=== PATIENT | female | born 1985 | race Caucasian/White ===

== ENCOUNTER → 2019-02-19 13:45 | Outpatient (BNVA) | payer OTHER, SELFPAY | PROVIDERS: Family Provider Family Medicine; PCP Family Medicine; Visit Provider Psychiatry & Neurology Psychiatry | DX: F43.12 Post-traumatic stress disorder, chronic (principal) | CPT/HCPCS: 99204 ==

== ENCOUNTER → 2019-04-20 14:59 | Outpatient (BNVA) | payer OTHER, SELFPAY | PROVIDERS: Family Provider Family Medicine; PCP Family Medicine; Referring Provider Family Medicine; Visit Provider Specialist | DX: M25.562 Pain in left knee (principal); G89.29 Other chronic pain | CPT/HCPCS: 73560; 73565 ==

== ENCOUNTER → 2019-08-10 16:04 | Outpatient (BNVA) | payer OTHER, SELFPAY | PROVIDERS: Family Provider Family Medicine; PCP Family Medicine; Visit Provider Nurse Practitioner Family | DX: M25.511 Pain in right shoulder (principal) | CPT/HCPCS: 73030 ==

== ENCOUNTER 2019-08-26 07:07 | Outpatient (CLI) | payer OTHER, SELFPAY ==
--- NOTE | 2019-08-26 07:15 | MR_ITS ---
WS: [id number] MRI RIGHT SHOULDER NONCONTRAST TECHNIQUE: Sagittal T2, coronal T1, T2 and proton density imaging. Axial gradient PDE imaging. CLINICAL INFORMATION: M25.511 Pain in right shoulder COMPARISON: None. FINDINGS: Prior postoperative changes right rotator cuff repair. Rotator cuff anchors results in Susceptibility artifact overlying the rotator cuff. Normal AC joint. Normal glenohumeral joint. No significant subacromial or subdeltoid fluid. Minimal u ndersurface acromial spurring. Mild downsloping of the acromion. Normal supraspinatus. Normal infrasp inatus. No evidence of recurrent high-grade tear. Normal teres minor and subscapularis. Rotator cuff appears intact. Normal biceps tendon in the bicipital groove. Normal biceps anchor. Glenoid labrum appears grossly in tact. No geoffrey labral tears. MR/MR shoulder RT wo con* [id number] IMPRESSION: 1. Evidence of prior rotator cuff repair with susceptibility artifact overlyin g the right shoulder. 2. Rotator cuff appears intact. No recurrent rotator cuff tear. 3. Normal biceps tendon in the bicipital groove. Normal biceps labral anchor. 4. Glenoid labrum appears grossly normal. 5. Normal bone marrow signal.
== END 2019-08-26 07:08 | disposition home or self-care (01) ==
LOC: RADSHAW 07:12
PROVIDERS: PCP Family Medicine; Visit Provider Nurse Practitioner Family
DX: M25.511 Pain in right shoulder (principal)
CPT/HCPCS: 73221

== ENCOUNTER → 2019-09-14 10:45 | Outpatient (BNVA) | payer OTHER, SELFPAY | PROVIDERS: PCP Family Medicine; Referring Provider Specialist; Visit Provider Anesthesiology Pain Medicine | DX: G89.29 Other chronic pain (principal); M79.18 Myalgia, other site; M25.511 Pain in right shoulder; M75.91 Shoulder lesion, unspecified, right shoulder; M67.911 Unspecified disorder of synovium and tendon, right shoulder; M54.42 Lumbago with sciatica, left side; M25.562 Pain in left knee; F17.210 Nicotine dependence, cigarettes, uncomplicated; Z79.891 Long term (current) use of opiate analgesic | CPT/HCPCS: 20553; 99203; 99204; J1030; J3490 ==

== ENCOUNTER 2019-10-29 16:08 | Emergency (ER) | payer OTHER, SELFPAY ==
[2019-10-29 16:47] VITALS: BP 133/93; PULSE 95; RESP 18; O2SAT 99; BMI 35.2
--- NOTE | 2019-10-29 17:09 | CTR_ITS ---
PROCEDURE INFORMATION: Exam: CT Abdomen And Pelvis With Contrast Exam date and time: 10/29/2019 5:36 PM Age: 34 years old Clinical indication: Bloating and nausea and vomiting; Abdominal pain; Other: Umbilical and RT lower; Prior surgery; Surgery type: Hyst TECHNIQUE: Imaging protocol: Computed tomography of the abdomen and pelvis with intravenous contrast. Radiation optimization: All CT scans at this facility use at least one of these dose optimization techniques: automated exposure control; mA and/or kV adjustment per patient size (includes targeted exams where dose is matched to clinical indication); or iterative reconstruction. Contrast material: OMNI 300; Contrast volume: 95 ml; Contrast route: INTRAVENOUS (IV); COMPARISON: No relevant prior studies available. RADIATION DOSE METRICS: Total DLP (mGy-cm): 1360.61 FINDINGS: Lungs: Limited assessment lung bases without visible evidence of active cardiopulmonary process. Liver: Hepatomegaly. Liver otherwise unremarkable without visible hepatic mass or cystic structure. Gallbladder and bile ducts: Normal. No calcified stones. No ductal dilation. Pancreas: Normal. No ductal dilation. Spleen: Normal. No splenomegaly. Adrenals: Normal. No mass. Kidneys and ureters: Normal. No hydronephrosis. Stomach and bowel: Examination reveals acute uncomplicated diverticulitis of the mid transverse colon. Associated surrounding pericolonic fat inflammatory phlegmonous response. No visible extraluminal gas or abscess. Nonobstructive bowel pattern. Mild reactive ileus of adjacent small bowel loops. Appendix: The appendix is visualized and is noninflamed. Intraperitoneal space: No visible intraperitoneal ascites. Vasculature: The abdominal aorta is nonaneurysmal. Minimal arterial sclerotic disease. Lymph nodes: Unremarkable. No enlarged lymph nodes. Bladder: Unremarkable as visualized. Reproductive: Status post hysterectomy. Bones/joints: No visible active osseous pathology. Soft tissues: Unremarkable. Other findings: Obesity. CT/CT abdomen pelvis w con* [id number] IMPRESSION: 1. Examination reveals acute uncomplicated diverticulitis of the mid transverse colon. Associated surrounding pericolonic fat inflammatory phlegmonous response. No visible extraluminal gas or abscess. 2. Mild reactive ileus of adjacent small bowel loops. Radiation Dose CTDIVOL = (mGy): DLP = 1360.61 (mGy-cm)
[2019-10-29 17:28] VITALS: RESP 20
[2019-10-29] MEDS: morphine 4 mg/mL SDV 1 mL IVP (17:28)
[2019-10-29] MEDS: ondansetron 2 mg/ML SDV 2 mL 4 MG IVP (17:28)
--- NOTE | 2019-10-29 17:33 | W.ED.ABDPA2 ---
Documented by User: Ashley Chandler MD 10/30/19 06:46 HPI - Abdominal Pain General: Chief Complaint: Abdominal Pain Stated Complaint: RLQ PAIN,COVID EXPOSURE Time Seen by Provider: 10/29/19 17:00 History of Present Illness: HPI narrative: This patient is a 34-year-old female who presents today with severe lower abdominal pain that started last night. She had vomiting and diarrhea yesterday but has not had any today. She was able to eat some Ramen noodles this morning but it did make her pain worse. She has not eaten anything since then. She went to the [facility] and [place] and was sent to the ER. She also received notification from the health department that she had a positive COVID exposure but she is not having any symptoms consistent with COVID at this time. She has had a complete hysterectomy including her ovaries at the age of 21. This was done for severe endometriosis. She has not had any other abdominal surgeries since then. MD elicited complaint: abdominal pain Pertinent past history: none Onset (ago): day(s) (Started last night) Pain Consistency: constant and colicky Location: RLQ and LLQ Severity: severe Quality: cramping and sharp Radiation: none Exacerbating factors: movement Relieving factors: nothing Associated Symptoms: Reports bloating, GI cramping, diarrhea, nausea and vomiting; Denies chills and fever(s) Review of Systems General: Reports: 10 or more systems reviewed and unremarkable except in HPI and below Const: Denies: fever(s), chills, fatigue or malaise Eyes: Denies: change in vision ENMT: Denies: odynophagia Card: Denies: chest pain or swelling of feet/ankles Resp: Denies: dyspnea, productive cough or non-productive cough GI: Reports: abdominal pain, nausea, vomiting, diarrhea, bloating and GI cramping : Denies: flank pain or difficulty voiding Musc: Denies: neck pain or back pain Skin/Breast: Denies: rash Neuro: Denies: headache(s), numbness in extremities or weakness in extremities Antonio/Lymph: Denies: easy bruising or easy bleeding PFSH ED PFSH: Medical History (Updated 10/29/19 @ 19:08 by Ernst Sr MD) Chronic pain of left knee Generalized anxiety disorder Surgical History (Updated 10/29/19 @ 17:36 by Ashley Chandler MD) H/O arthroscopic knee surgery H/O shoulder surgery H/O total hysterectomy with bilateral salpingo-oophorectomy (BSO) Family History Family/Other Cancer BREAST CANCER-AUNT Mother Diabetes Hypertension Grandmother Hypertension Social History Smoking and tobacco status: current every day smoker cigarettes Years cigarettes smoked: 20 Quit status (tobacco): has tried quititng Number of times tried to quit tobacco: 4 Second hand smoke exposure: No Smoking risk assessment/counseling performed?: No Female Reproductive History: Spontaneous abortions: No Physical Exam Const: COMMON NORMALS: patient oriented x3, no limitations and alert GENERAL APPEARANCE: cooperative HENMT: HEAD & SCALP: normal to inspection FACE & SINUS: normal facial exam Eye: GENERAL EYE: appearance normal, both eyes and all related structures Neck/C-Spine: COMMON NORMALS: supple, no meningeal signs and no JVD Chest: COMMONS NORMALS: normal inspection of the chest Resp: COMMON NORMALS: normal respiratory effort, No use of accessory muscles and clear to auscultation bilaterally AUSCULTATION: clear to auscultation bilaterally Cardio: COMMON NORMALS: no JVD, regular rate, regular rhythm and No murmurs present (Cardio) RATE: regular rate RHYTHM: regular rhythm GI: INSPECTION: Yes normal to inspection and Yes abdominal distension AUSCULTATION: Yes Hypoactive bowel sounds present PALPATION: Yes Tenderness to palpation present (GI) (Severe, bilateral lower quadrants.) PERCUSSION: tympanic to percussion Back/Pelvis: COMMON NORMALS: thoracic and lumbar spine normal to inspection Extremity: COMMON NORMALS: normal to inspection Neuro: COMMON NORMALS: patient oriented x3, moves all extremities, no focal motor deficits and no sensory deficits noted SENSORIUM/ORIENTATION: Yes alert MENINGEAL SIGNS: Yes no meningeal signs Psych: COMMON NORMALS: mental status grossly normal, cooperative and normal affect Skin: COMMON NORMALS: no rashes or lesions noted and turgor normal GENERAL SKIN EXAM: no rashes or lesions noted and turgor normal Course ED course: This patient presents with severe abdominal pain across the lower abdomen. She was unable to find a comfortable position and was given pain medication in the ER. Labs and CT are ordered. Care turned over to Dr. Sr at shift change. Vital Signs: Vital signs: Vital Signs Pulse Rate 87 10/29/19 19:56 Respiratory Rate 16 10/29/19 19:56 Blood Pressure 132/76 10/29/19 19:56 Pulse Oximetry 98 10/29/19 19:56 MDM - Abdominal Pain Lab Data: Labs: Lab Results 10/29/19 10/29/19 10/29/19 Range/Units 17:20 17:20 17:20 WBC 13.5 H (4.0-10.0) 10^3/ uL RBC 4.14 (4.1-5.3) 10^6/u L Hgb 13.3 (11.5-15.3) g/dL Hct 40.4 (37.0-47.0) % MCV 97.6 (81-99) fL MCH 32.1 (28.0-34.0) pg MCHC 32.9 (30.0-36.0) g/dL RDW 12.5 (12.1-15.1) % Plt Count 324 (130-400) 10^3/c mm MPV 10.6 H (7.4-10.4) fL Neut % (Auto) 71.2 % Lymph % (Auto) 20.0 % [place] % (Auto) 7.5 % Eos % (Auto) 0.5 % Baso % (Auto) 0.5 % Neut # (Auto) 9.58 H (1.8-7.7) 10^3/u L Lymph # (Auto) 2.7 (0.8-4.8) 10^3/u L [place] # (Auto) 1.0 H (0.2-0.9) 10^3/u L Eos # (Auto) 0.1 (0.0-0.8) 10^3/u L Baso # (Auto) 0.1 (0.0-0.1) 10^3/u L Nucleated RBC % (a uto) 0 % Nucleated RBCs # 0.0 /100WBC Sodium 138 (136-145) mmol/L Potassium 4.2 (3.5-5.1) mmol/L Chloride 103 (98-107) mmol/L Carbon Dioxide 23 (22-29) mmol/L Anion Gap 16.2 (5-19) BUN 6 (6-20) mg/dL Creatinine 0.6 (0.5-0.9) mg/dL GFR Calculation 113.8 (90-130) mL/min Glucose 85 (65-115) mg/dL Calculated Osmolal ity 283 L (285-295) mOsm/k g Lactic Acid 0.9 (0.5-2.2) mmol/L Calcium 9.6 (8.5-10.5) mg/dL Total Bilirubin 0.2 (0.15-1.2) mg/dL AST 18 (0-32) U/L ALT 25 (0-33) U/L Alkaline Phosphata se 138 H (35-105) IU/L Total Protein 8.4 (6.6-8.7) g/dL Albumin 4.7 (3.5-5.2) g/dL Globulin 3.7 (1.3-4.6) g/dL Lipase 18 (13-60) U/L Urine Color (Yellow) Urine Appearance (CLEAR) Urine pH (5-7) Ur Specific Gravit y (1.005-1.030) Urine Protein (Negative) Urine Glucose (UA) (Normal) Urine Ketones (Negative) Urine Blood (Negative) Urine Nitrate (Negative) Urine Bilirubin (Negative) Urine Urobilinogen (Negative) mg/dL Ur Leukocyte Whitney ase (Negative) 10/29/19 Range/Units 17:29 WBC (4.0-10.0) 10^3/ uL RBC (4.1-5.3) 10^6/u L Hgb (11.5-15.3) g/dL Hct (37.0-47.0) % MCV (81-99) fL MCH (28.0-34.0) pg MCHC (30.0-36.0) g/dL RDW (12.1-15.1) % Plt Count (130-400) 10^3/c mm MPV (7.4-10.4) fL Neut % (Auto) % Lymph % (Auto) % [place] % (Auto) % Eos % (Auto) % Baso % (Auto) % Neut # (Auto) (1.8-7.7) 10^3/u L Lymph # (Auto) (0.8-4.8) 10^3/u L [place] # (Auto) (0.2-0.9) 10^3/u L Eos # (Auto) (0.0-0.8) 10^3/u L Baso # (Auto) (0.0-0.1) 10^3/u L Nucleated RBC % (a uto) % Nucleated RBCs # /100WBC Sodium (136-145) mmol/L Potassium (3.5-5.1) mmol/L Chloride (98-107) mmol/L Carbon Dioxide (22-29) mmol/L Anion Gap (5-19) BUN (6-20) mg/dL Creatinine (0.5-0.9) mg/dL GFR Calculation (90-130) mL/min Glucose (65-115) mg/dL Calculated Osmolal ity (285-295) mOsm/k g Lactic Acid (0.5-2.2) mmol/L Calcium (8.5-10.5) mg/dL Total Bilirubin (0.15-1.2) mg/dL AST (0-32) U/L ALT (0-33) U/L Alkaline Phosphata se (35-105) IU/L Total Protein (6.6-8.7) g/dL Albumin (3.5-5.2) g/dL Globulin (1.3-4.6) g/dL Lipase (13-60) U/L Urine Color Straw (Yellow) Urine Appearance Clear (CLEAR) Urine pH 7 (5-7) Ur Specific Gravit y 1.005 (1.005-1.030) Urine Protein Neg (Negative) Urine Glucose (UA) Norm (Normal) Urine Ketones Negative (Negative) Urine Blood Neg (Negative) Urine Nitrate Negative (Negative) Urine Bilirubin Neg (Negative) Urine Urobilinogen Neg (Negative) mg/dL Ur Leukocyte Whitney ase Negative (Negative) Discharge Plan Discharge Patient Disposition: Home Clinical Impression: Diverticulitis Condition: Stable Prescriptions: New Arboles 5-325 mg tablet 1 tab PO Q6H PRN (Reason: pain) Qty: 14 RF: 0 Zofran 4 mg tablet 4 mg PO QID PRN (Reason: nausea and vomiting) Qty: 14 RF: 0 Augmentin 875-125 mg tablet 1 tab PO BID Qty: 10 RF: 0 No Action buspirone 5 mg tablet 5 mg PO BID PRN (Reason: Anxiety) RF: 0 venlafaxine 150 mg capsule,extended release 24hr 150 mg PO DAILY RF: 0 Discharge Orders: Discharge Order (Routine); Ordered 10/29/19 Ordered By: Ernst Sr Referrals: Lenore Soares MD [Primary Care Provider] - 1-3 days Discharge Diet: Advance as tolerated Discharge Activity: Resume usual activity Patient Instructions: Diverticulitis (ED) Discharge Date/Time: 10/29/19 19:57 Coding Level of Care Code ED Apartment Groundskeeper for Chg Fwd Exam Comprehensive Documented by User: Ernst Sr MD 10/29/19 19:15 HPI - Abdominal Pain General: Chief Complaint: Abdominal Pain Stated Complaint: RLQ PAIN,COVID EXPOSURE Time Seen by Provider: 10/29/19 17:00 [facility] ED PFSH: Medical History (Updated 10/29/19 @ 19:08 by Ernst Sr MD) Chronic pain of left knee Generalized anxiety disorder Surgical History (Updated 10/29/19 @ 17:36 by Ashley Chandler MD) H/O arthroscopic knee surgery H/O shoulder surgery H/O total hysterectomy with bilateral salpingo-oophorectomy (BSO) Family History Family/Other Cancer BREAST CANCER-AUNT Mother Diabetes Hypertension Grandmother Hypertension Social History Smoking and tobacco status: current every day smoker cigarettes Years cigarettes smoked: 20 Quit status (tobacco): has tried quititng Number of times tried to quit tobacco: 4 Second hand smoke exposure: No Smoking risk assessment/counseling performed?: No Course Vital Signs: Vital signs: Vital Signs Pulse Rate 87 10/29/19 19:56 Respiratory Rate 16 10/29/19 19:56 Blood Pressure 132/76 10/29/19 19:56 Pulse Oximetry 98 10/29/19 19:56 MDM - Abdominal Pain MDM Narrative: Medical decision making narrative: Patient presents here with abdominal pain is found to have diverticulitis. Patient's abdominal pain is improved here and her exam at discharge is benign. She is stable for discharge I informed her to follow-up with her PCP in 3 to 5 days return to the ER if her pain worsens she has vomiting. We will place her on Augmentin along with pain meds. Lab Data: Labs: Lab Results 10/29/19 10/29/19 10/29/19 Range/Units 17:20 17: 17:20 WBC 13.5 H (4.0-10.0) 10^3/ uL RBC 4.14 (4.1-5.3) 10^6/u L Hgb 13.3 (11.5-15.3) g/dL Hct 40.4 (37.0-47.0) % MCV 97.6 (81-99) fL MCH 32.1 (28.0-34.0) pg MCHC 32.9 (30.0-36.0) g/dL RDW 12.5 (12.1-15.1) % Plt Count 324 (130-400) 10^3/c mm MPV 10.6 H (7.4-10.4) fL Neut % (Auto) 71.2 % Lymph % (Auto) 20.0 % [place] % (Auto) 7.5 % Eos % (Auto) 0.5 % Baso % (Auto) 0.5 % Neut # (Auto) 9.58 H (1.8-7.7) 10^3/u L Lymph # (Auto) 2.7 (0.8-4.8) 10^3/u L [place] # (Auto) 1.0 H (0.2-0.9) 10^3/u L Eos # (Auto) 0.1 (0.0-0.8) 10^3/u L Baso # (Auto) 0.1 (0.0-0.1) 10^3/u L Nucleated RBC % (a uto) 0 % Nucleated RBCs # 0.0 /100WBC Sodium 138 (136-145) mmol/L Potassium 4.2 (3.5-5.1) mmol/L Chloride 103 (98-107) mmol/L Carbon Dioxide 23 (22-29) mmol/L Anion Gap 16.2 (5-19) BUN 6 (6-20) mg/dL Creatinine 0.6 (0.5-0.9) mg/dL GFR Calculation 113.8 (90-130) mL/min Glucose 85 (65-115) mg/dL Calculated Osmolal ity 283 L (285-295) mOsm/k g Lactic Acid 0.9 (0.5-2.2) mmol/L Calcium 9.6 (8.5-10.5) mg/dL Total Bilirubin 0.2 (0.15-1.2) mg/dL AST 18 (0-32) U/L ALT 25 (0-33) U/L Alkaline Phosphata se 138 H (35-105) IU/L Total Protein 8.4 (6.6-8.7) g/dL Albumin 4.7 (3.5-5.2) g/dL Globulin 3.7 (1.3-4.6) g/dL Lipase 18 (13-60) U/L Urine Color (Yellow) Urine Appearance (CLEAR) Urine pH (5-7) Ur Specific Gravit y (1.005-1.030) Urine Protein (Negative) Urine Glucose (UA) (Normal) Urine Ketones (Negative) Urine Blood (Negative) Urine Nitrate (Negative) Urine Bilirubin (Negative) Urine Urobilinogen (Negative) mg/dL Ur Leukocyte Whitney ase (Negative) 10/29/19 Range/Units 17:29 WBC (4.0-10.0) 10^3/ uL RBC (4.1-5.3) 10^6/u L Hgb (11.5-15.3) g/dL Hct (37.0-47.0) % MCV (81-99) fL MCH (28.0-34.0) pg MCHC (30.0-36.0) g/dL RDW (12.1-15.1) % Plt Count (130-400) 10^3/c mm MPV (7.4-10.4) fL Neut % (Auto) % Lymph % (Auto) % [place] % (Auto) % Eos % (Auto) % Baso % (Auto) % Neut # (Auto) (1.8-7.7) 10^3/u L Lymph # (Auto) (0.8-4.8) 10^3/u L [place] # (Auto) (0.2-0.9) 10^3/u L Eos # (Auto) (0.0-0.8) 10^3/u L Baso # (Auto) (0.0-0.1) 10^3/u L Nucleated RBC % (a uto) % Nucleated RBCs # /100WBC Sodium (136-145) mmol/L Potassium (3.5-5.1) mmol/L Chloride (98-107) mmol/L Carbon Dioxide (22-29) mmol/L Anion Gap (5-19) BUN (6-20) mg/dL Creatinine (0.5-0.9) mg/dL GFR Calculation (90-130) mL/min Glucose (65-115) mg/dL Calculated Osmolal ity (285-295) mOsm/k g Lactic Acid (0.5-2.2) mmol/L Calcium (8.5-10.5) mg/dL Total Bilirubin (0.15-1.2) mg/dL AST (0-32) U/L ALT (0-33) U/L Alkaline Phosphata se (35-105) IU/L Total Protein (6.6-8.7) g/dL Albumin (3.5-5.2) g/dL Globulin (1.3-4.6) g/dL Lipase (13-60) U/L Urine Color Straw (Yellow) Urine Appearance Clear (CLEAR) Urine pH 7 (5-7) Ur Specific Gravit y 1.005 (1.005-1.030) Urine Protein Neg (Negative) Urine Glucose (UA) Norm (Normal) Urine Ketones Negative (Negative) Urine Blood Neg (Negative) Urine Nitrate Negative (Negative) Urine Bilirubin Neg (Negative) Urine Urobilinogen Neg (Negative) mg/dL Ur Leukocyte Whitney ase Negative (Negative) Imaging Data ^: CT Abd/Pel: Radiologist's impression: [address] [address] [address] Scan Report Signed with Addenda Patient: Daniella Quintanilla [id number] [facility] 1985 [id number] Age/Sex: 34 / F ADM Date: 10/29/19 Loc: ER Room/Bed: Attending Dr: Ordering Provider/Ordering MD: Ashley Chandler MD Date of Service: 10/29/19 Procedure(s): CT abdomen pelvis w con* [id number] Accession Number(s): [id number] Report Number: [id number]/CT abdomen pelvis w con* [id number] THIS REPORT CONTAINS FINDINGS THAT MAY BE CRITICAL TO PATIENT CARE. The findings were verbally communicated via telephone conference with Ashley Chandler at 7:03 PM CDT on 10/29/2019. The findings were acknowledged and understood. Radiation Dose CTDIVOL = (mGy): DLP = 1360.61 (mGy-cm) Addendum Dictated By: Osmar Vogt Addendum Signed By: Osmar Vogt Signed Date/Time: 10/29/19 190 5 Addendum Cosigned By: PROCEDURE INFORMATION: Exam: CT Abdomen And Pelvis With Contrast Exam date and time: 10/29/2019 5:36 PM Age: 34 years old Clinical indication: Bloating and nausea and vomiting; Abdominal pain; Other: Umbilical and RT lower; Prior surgery; Surgery type: Hyst TECHNIQUE: Imaging protocol: Computed tomography of the abdomen and pelvis with intravenous contrast. Radiation optimization: All CT scans at this facility use at least one of these dose optimization techniques: automated exposure control; mA and/or kV adjustment per patient size (includes targeted exams where dose is matched to clinical indication); or iterative reconstruction. Contrast material: OMNI 300; Contrast volume: 95 ml; Contrast route: INTRAVENOUS (IV); COMPARISON: No relevant prior studies available. RADIATION DOSE METRICS: Total DLP (mGy-cm): 1360.61 FINDINGS: Lungs: Limited assessment lung bases without visible evidence of active cardiopulmonary process. Liver: Hepatomegaly. Liver otherwise unremarkable without visible hepatic mass or cystic structure. Gallbladder and bile ducts: Normal. No calcified stones. No ductal dilation. Pancreas: Normal. No ductal dilation. Spleen: Normal. No splenomegaly. Adrenals: Normal. No mass. Kidneys and ureters: Normal. No hydronephrosis. Stomach and bowel: Examination reveals acute uncomplicated diverticulitis of the mid transverse colon. Associated surrounding pericolonic fat inflammatory phlegmonous response. No visible extraluminal gas or abscess. Nonobstructive bowel pattern. Mild reactive ileus of adjacent small bowel loops. Appendix: The appendix is visualized and is noninflamed. Intraperitoneal space: No visible intraperitoneal ascites. Vasculature: The abdominal aorta is nonaneurysmal. Minimal arterial sclerotic disease. Lymph nodes: Unremarkable. No enlarged lymph nodes. Bladder: Unremarkable as visualized. Reproductive: Status post hysterectomy. Bones/joints: No visible active osseous pathology. Soft tissues: Unremarkable. Other findings: Obesity. CT/CT abdomen pelvis w con* [id number] IMPRESSION: 1. Examination reveals acute uncomplicated diverticulitis of the mid transverse colon. Associated surrounding pericolonic fat inflammatory phlegmonous response. No visible extraluminal gas or abscess. 2. Mild reactive ileus of adjacent small bowel loops. Discharge Plan Discharge Patient Disposition: Home Clinical Impression: Diverticulitis Condition: Stable Prescriptions: New Arboles 5-325 mg tablet 1 tab PO Q6H PRN (Reason: pain) Qty: 14 RF: 0 Zofran 4 mg tablet 4 mg PO QID PRN (Reason: nausea and vomiting) Qty: 14 RF: 0 Augmentin 875-125 mg tablet 1 tab PO BID Qty: 10 RF: 0 No Action buspirone 5 mg tablet 5 mg PO BID PRN (Reason: Anxiety) RF: 0 venlafaxine 150 mg capsule,extended release 24hr 150 mg PO DAILY RF: 0 Discharge Orders: Discharge Order (Routine); Ordered 10/29/19 Ordered By: Ernst Sr Referrals: Lenore Soares MD [Primary Care Provider] - 1-3 days Discharge Diet: Advance as tolerated Discharge Activity: Resume usual activity Patient Instructions: Diverticulitis (ED) Discharge Date/Time: 10/29/19 19:57 Coding Level of Care Code ED Apartment Groundskeeper for Chg Fwd Exam Comprehensive
[2019-10-29 17:36] LABS: Add Urine Microscopic? NO
[2019-10-29 17:42] LABS: Basophils # 0.1 10^3/uL (0.0-0.1); Basophils % 0.5 %; Eosinophils # 0.1 10^3/uL (0.0-0.8); Eosinophils % 0.5 %; Hematocrit 40.4 % (37.0-47.0); Hemoglobin 13.3 g/dL (11.5-15.3); Lymphocytes # 2.7 10^3/uL (0.8-4.8); Mean Corpuscular HGB Conc 32.9 g/dL (30.0-36.0); Mean Corpuscular Hemoglobin 32.1 pg (28.0-34.0); Mean Corpuscular Volume 97.6 fL (81-99); Mean Platelet Volume 10.6 fL (7.4-10.4); Monocytes % 7.5 %; Neutrophils # 9.58 10^3/uL (1.8-7.7); Neutrophils % 71.2 %; Nucleated Red Blood Cells % 0 %; Platelet Count 324 10^3/cmm (130-400); Red Blood Count 4.14 10^6/uL (4.1-5.3); Red Cell Distribution Width 12.5 % (12.1-15.1); White Blood Count 13.5 10^3/uL (4.0-10.0)
[2019-10-29 17:45] LABS: Bilirubin Urine Neg (Negative); Blood Urine Neg (Negative); Glucose Urine UA Norm (Normal); Ketones Urine Negative (Negative); Leukocyte Esterase Urine Negative (Negative); Nitrate Urine Negative (Negative); Protein Urine Neg (Negative); Specific Gravity, Urine 1.005 (1.005-1.030); Urine Appearance Clear (CLEAR); Urine Color Straw (Yellow); Urobilinogen Urine Neg (Negative); pH Urine 7 (5-7)
[2019-10-29 17:59] LABS: Alanine Aminotransferase 25 U/L (0-33); Albumin Level 4.7 g/dL (3.5-5.2); Alkaline Phosphatase 138 IU/L (35-105); Anion Gap 16.2 (5-19); Aspartate Amino Transferase 18 U/L (0-32); Blood Urea Nitrogen 6 mg/dL (6-20); Calcium 9.6 mg/dL (8.5-10.5); Carbon Dioxide 23 mmol/L (22-29); Chloride 103 mmol/L (98-107); Globulin 3.7 g/dL (1.3-4.6); Glomerular Filtration Rate 113.8 mL/min (90-130); Glucose 85 mg/dL (65-115); Lipase 18 U/L (13-60); Osmolality Calculated 283 mOsm/kg (285-295); Potassium 4.2 mmol/L (3.5-5.1); Sodium 138 mmol/L (136-145); Total Bilirubin 0.2 mg/dL (0.15-1.2); Total Protein 8.4 g/dL (6.6-8.7)
[2019-10-29 18:00] LABS: Lactic Sepsis W/Reflex 0.9 mmol/L (0.5-2.2)
[2019-10-29] MEDS: iohexol 300 mg/mL 100 mL Btl IV (18:31)
[2019-10-29 19:56] VITALS: BP 132/76; PULSE 87; RESP 16; O2SAT 98
== END 2019-10-29 19:57 | disposition home or self-care (01) ==
PROVIDERS: Emergency Medicine; Emergency Provider Emergency Medicine; PCP Family Medicine
DX: K57.92 Diverticulitis of intestine, part unspecified, without perforation or abscess without bleeding (principal); F17.210 Nicotine dependence, cigarettes, uncomplicated
CPT/HCPCS: 12345; 74177; 80053; 81003; 83605; 83690; 85025; 96374; 96375; 99283; J2270; J2405; Q9967

== ENCOUNTER → 2019-12-28 10:55 | Outpatient (BNVA) | payer OTHER, SELFPAY | PROVIDERS: PCP Family Medicine; Visit Provider Nurse Practitioner Family | DX: Z20.828 Contact with and (suspected) exposure to other viral communicable diseases (principal); J06.9 Acute upper respiratory infection, unspecified | CPT/HCPCS: 87635 ==

== ENCOUNTER → 2020-10-26 14:34 | Outpatient (BNVA) | payer BC, SELFPAY | PROVIDERS: PCP Family Medicine; Visit Provider Emergency Medicine | DX: M62.838 Other muscle spasm (principal); M67.911 Unspecified disorder of synovium and tendon, right shoulder; Z98.890 Other specified postprocedural states | CPT/HCPCS: 73030 ==

== ENCOUNTER → 2021-10-19 14:05 | Outpatient (BNVA) | payer SELFPAY | PROVIDERS: PCP Family Medicine; Visit Provider Family Medicine | DX: M62.838 Other muscle spasm (principal); M75.91 Shoulder lesion, unspecified, right shoulder; F41.1 Generalized anxiety disorder; M79.641 Pain in right hand; M79.642 Pain in left hand; M12.9 Arthropathy, unspecified; Z13.1 Encounter for screening for diabetes mellitus; Z13.6 Encounter for screening for cardiovascular disorders; R53.83 Other fatigue; Z83.49 Family history of other endocrine, nutritional and metabolic diseases | CPT/HCPCS: 73130 ==